=== PATIENT | male | born 1980 | race Asian ===

== ENCOUNTER → 2017-02-28 | Outpatient (CLI) | payer BC ==
--- NOTE | 2017-02-28 16:06 | Diagnostic Imaging Report ---
Indications: Quadrant abdominal pain Technique: 2 views of the abdomen. Findings: Comparison: None. Single loop of small bowel in left midabdomen demonstrates mild gaseous distention. Associated mild mural thickening not excludable. One or more additional fluid-filled, distended small bowel loops not excludable. Remainder of bowel gas pattern is unremarkable. No intraperitoneal free air or significant air-fluid levels are demonstrated. No abnormal calcific or soft tissue densities are demonstrated. The visualized skeletal structures are unremarkable IMPRESSION: Isolated mild small bowel dilation left midabdomen may represent regional ileus. Underlying acute pathology not excludable. Consider contrast-enhanced CT scan of the abdomen and pelvis for further evaluation. Remainder of exam unremarkable.
== END | disposition home or self-care (01) ==
LOC: RAD 11:23
DX: R10.32 Left lower quadrant pain (principal)
CPT/HCPCS: 74020